=== PATIENT | female | born 1950 | race American Indian/Alaskan Native ===

== ENCOUNTER 2019-03-10 08:05 | Emergency (ER) | payer OTHER, MEDICARE ==
[2019-03-10 08:14] VITALS: BP 139/95
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
--- NOTE | 2019-03-10 10:05 | XRay Report ---
CERVICAL SPINE 6 VIEWS INDICATION: Neck injury. COMPARISON: No relevant prior imaging study available. FINDINGS: VERTEBRAE: No acute fracture. Normal alignment. DISC SPACES: No significant abnormality. FACET JOINTS: No significant abnormality. SOFT TISSUES: There is moderate bilateral common carotid atherosclerosis. ADDITIONAL FINDINGS: No additional significant findings. IMPRESSION: No acute abnormality of the cervical spine. Signer Name: Rommel Crabtree MD Signed: 03/10/2019 10:00 AM Workstation Name: [id number]
[2019-03-10] MEDS ORDERED: TORADOL IM ONE (10:24)
== END 2019-03-10 10:43 | disposition home or self-care (01) ==
LOC: ED 08:05
DX: S16.1XXA Strain of muscle, fascia and tendon at neck level, initial encounter (principal); I10 Essential (primary) hypertension; Z88.0 Allergy status to penicillin; V49.59XA Passenger injured in collision with other motor vehicles in traffic accident, initial encounter; Y93.89 Activity, other specified; Y92.488 Other paved roadways as the place of occurrence of the external cause; Y99.8 Other external cause status
CPT/HCPCS: 72050

== ENCOUNTER 2019-07-04 09:53 | Observation (INO) | payer MEDICARE ==
--- NOTE | 2019-07-04 10:59 | XRay Report ---
PA AND LATERAL CXR HISTORY: Chest pain and cough for one month. COMPARISON: None FINDINGS: Cardiomediastinal silhouette: Normal cardiac size. Normal mediastinal contours. Lungs: Normal expansion. Normal lung aeration. No pleural effusions. No pneumothorax. Prominent ho rizontal fissure is incidentally noted on the right. Pulmonary vascularity: Normal. Support hardware: None. Additional findings: None. IMPRESSION: No evidence of acute cardiopulmonary disease. Signer Name: Deni Somers MD Signed: 07/04/2019 10:54 AM Workstation Name: [id number]
[2019-07-04 11:55] LABS: Basophils % (Auto) 0.6 % (0.0-1.8); Eosinophils # (Auto) 0.1 K/mm3 (0.0-0.4); Eosinophils % (Auto) 1.6 % (0.0-4.3); Hematocrit 36.7 % (30.3-42.9); Hemoglobin 12.7 gm/dl (10.1-14.3); Lymphocytes # (Auto) 2.8 K/mm3 (1.2-5.4); Lymphocytes % (Auto) 39.3 % (13.4-35.0); Mean Corpuscular HGB Conc 35 % (30-34); Mean Corpuscular Volume 92 fl (79-97); Monocytes # (Auto) 0.7 K/mm3 (0.0-0.8); Monocytes % (Auto) 9.9 % (0.0-7.3); Platelet Count 196 K/mm3 (140-440); Red Blood Count 4.01 M/mm3 (3.65-5.03); Red Cell Distribution Width 14.9 % (13.2-15.2)
[2019-07-04 12:05] LABS: INR 1.65 (0.87-1.13); Partial Thromboplastin Time 34.6 Sec. (24.2-36.6)
[2019-07-04 12:22] LABS: Alanine Aminotransferase 37 units/L (7-56); Albumin 3.8 g/dL (3.9-5); BUN/Creatinine Ratio 22; Blood Urea Nitrogen 11 mg/dL (7-17); Calcium 9.3 mg/dL (8.4-10.2); Hemolysis Index 5
--- NOTE | 2019-07-04 12:54 | Vascular Lab Report ---
DUPLEX DOPPLER LOWER EXTREMITY VEINS, LEFT INDICATION: LLE pain, hx of DVT/PE. TECHNIQUE: Duplex doppler imaging was performed through the veins of the left lower extremity using venous compr ession and other maneuvers. COMPARISON: None available. FINDINGS: Common femoral vein: Negative. Superficial femoral vein: Negative. Popliteal vein: Negative. Calf veins: Negative. Additional findings: None. IMPRESSION: Negative for DVT. Signer Name: Evaristo Rausch MD Signed: 07/04/2019 12:49 PM Workstation Name: [id number]
--- NOTE | 2019-07-04 13:13 | Emergency Department Report ---
ED Chest Pain HPI - General Chief Complaint: Chest Pain Stated Complaint: CHEST PAIN/COUGH Time Seen by Provider: 07/04/19 12:03 Source: patient Mode of arrival: Ambulatory Limitations: No Limitations - History of Present Illness Initial Comments: 69-year-old female presents to the emergency department with complaint of a three-day history of some midsternal chest pressure. It is nonradiating. First she thought it was some indigestion so she started taking Tums without any relief. The patient also has been dealing with a lingering cough for the past month and says that recently she has started to develop some brownish sputum. The patient also complains of some intermittent left thigh tenderness. There has been no trauma. No swelling or skin color change. The patient does have a previous history of both DVT and PE and is on Xarelto, which she says she has been taking compliantly. She also has a past medical history of hypertension, hyperlipidemia and is a tobacco smoker. No family history of early cardiac disease or events. Her primary care physician is a Dr. Ban. [place]. She previously had a negative stress test but it has been many years since this occurred. No recent travel or sick contacts at home. Severity scale (0 -10): 5 - Related Data Previous Rx's Medication Instructions Recorded Last Taken Type Cyclobenzaprine HCl [Flexeril 5 MG 5 mg PO TID PRN #21 tab 03/10/19 Unknown Rx TAB] Naproxen [Naprosyn] 500 mg PO BID #14 tablet 03/10/19 Unknown Rx Allergies Allergy/AdvReac Type Severity Reaction Status Date / Time Penicillins Allergy Unknown Verified 07/04/19 10:07 Heart Score - HEART Score History: Slightly suspicious EKG: Normal Age: > 65 Risk factors: > 3 risk factors or hx of atherosclerotic disease Troponin: < normal limit HEART Score: 4 - Critical Actions Critical Actions: 4-6 pts:12-16.6% risk of adverse cardiac event. Should be admitted ED Review of Systems ROS: Stated complaint: CHEST PAIN/COUGH Other details as noted in HPI Comment: All other systems reviewed and negative Constitutional: denies: chills, fever Eyes: denies: eye pain, vision change ENT: denies: ear pain Respiratory: cough. denies: shortness of breath Cardiovascular: chest pain. denies: edema Gastrointestinal: denies: abdominal pain, vomiting Genitourinary: denies: dysuria, discharge Musculoskeletal: myalgia. denies: joint swelling Skin: denies: rash, lesions Neurological: denies: headache, weakness ED Past Medical Hx - Past Medical History Hx Hypertension: Yes Additional medical history: Blood clots - Surgical History Additional Surgical History: BUNION/ CARPEL TUNNEL - Social History Smoking Status: Former Smoker Substance Use Type: Alcohol - Medications Home Medications: Home Medications Medication Instructions Recorded Confirmed Last Taken Type Cyclobenzaprine HCl [Flexeril 5 MG 5 mg PO TID PRN #21 tab 03/10/19 Unknown Rx TAB] Naproxen [Naprosyn] 500 mg PO BID #14 tablet 03/10/19 Unknown Rx ED Physical Exam - General Limitations: No Limitations - Other Other exam information: GENERAL: The patient is well-developed well-nourished. HEENT: Normocephalic. Atraumatic. Patient has moist mucous membranes. EYES: Extraocular motions are intact. NECK: Supple. Trachea is midline. CHEST/LUNGS: Clear to auscultation. There is no respiratory distress noted. HEART/CARDIOVASCULAR: Regular. There is no tachycardia. ABDOMEN: Abdomen is soft, nontender. Patient has normal bowel sounds. There is no abdominal distention. SKIN: Skin is warm and dry. NEURO: The patient is awake, alert, and oriented. The patient is cooperative. The patient has no focal neurologic deficits. The patient has normal speech. MUSCULOSKELETAL: There is some tenderness to palpation to the left mid upper thigh but no obvious deformity. There is no limitation range of motion. ED Course Vital Signs 07/04/19 07/04/19 07/04/19 10:10 12:47 12:57 Temperature 98.6 F Pulse Rate 61 Respiratory 18 18 Rate Blood Pressure 125/70 O2 Sat by Pulse 97 99 100 Oximetry 07/04/19 15:01 Temperature Pulse Rate Respiratory 18 Rate Blood Pressure O2 Sat by Pulse Oximetry AFRICA score - [place] Score Age > 65: (1) Yes Aspirin use within the Past 7 Days: (1) Yes 3 or more CAD Risk Factors: (1) Yes 2 or more Angina events in past 24 hrs: (1) Yes Known CAD with more than 50% Stenosis: (0) No Elevated Cardiac Markers: (0) No ST Deviation Greater than 0.5mm: (0) No AFRICA Score: 4 ED Medical Decision Making - Lab Data Result diagrams: 07/04/19 11:36 07/04/19 11:36 - EKG Data -: EKG Interpreted by Me EKG shows normal: sinus rhythm (PACs), axis, intervals, QRS complexes, ST-T waves Rate: normal - EKG Data When compared to previous EKG there are: previous EKG unavailable Interpretation: normal EKG - Radiology Data Radiology results: report reviewed, image reviewed interpreted by me: Chest x-ray does not show any pneumonia, pleural effusions, focal consolidation, pneumothorax, or any other acute process. DUPLEX DOPPLER LOWER EXTREMITY VEINS, LEFT INDICATION: LLE pain, hx of DVT/PE. TECHNIQUE: Duplex doppler imaging was performed through the veins of the left lower extremity using venous compression and other maneuvers. COMPARISON: None available. FINDINGS: Common femoral vein: Negative. Superficial femoral vein: Negative. Popliteal vein: Negative. Calf veins: Negative. Additional findings: None. IMPRESSION: Negative for DVT. - Medical Decision Making This patient presents to the emergency department with a 3 night history of some midsternal chest pressure. EKG does not show any signs of ST elevation NV. Chest x-ray does not show any acute process. The patient has a history of DVT and PE and complains of some left thigh pain that has been going on for the past few days. Left lower extremity venous Doppler was negative for DVT. Labs have been unremarkable thus far including CBC, metabolic panel, d-dimer and trop onin. The patient continues to have chest discomfort and it has been multiple years since the patient last had a stress test. Therefore the patient will be admitted to the hospital for further evaluation and treatment and was accepted for admission by the hospitalist, Dr. Perera. - Differential Diagnosis NV, DVT, PE, GERD, Pneumonia Critical Care Time: No Critical care attestation.: If time is entered above; I have spent that time in minutes in the direct care of this critically ill patient, excluding procedure time. ED Disposition Clinical Impression: Acute chest pain, Hypokalemia, Chest pain, rule out acute myocardial infarction Disposition: OP ADMIT IP TO THIS HOSP Is pt being admited?: Yes Condition: Fair Time of Disposition: 13:46
[2019-07-04] MEDS ORDERED: oxyCODONE /ACETAMINOPHEN 5-325MG TAB PO ONE (13:52)
--- NOTE | 2019-07-04 19:53 | History and Physical Report ---
History of Present Illness Date of examination: 07/04/19 Date of admission: 07/04/19 13:46 Chief complaint: Chest pain for 3 days off-and-on History of present illness: 69-year-old -[place] female with history of hypertension and reflux comes in for midsternal chest pressure off and on for 3 days. Patient attributes it to indigestion and reflux. Patient has been taking Tums without any relief. Patient also has been having some cough productive of mucoid sputum for the Last couple of weeks. Chest pain is retrosternal dull in character. No diaphoresis and no shortness of breath. No palpitations. Patient is a smoker in the past. 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 No syncope or seizures. No recent travel. Chest discomfort is about 6 on a scale of 1-10. No exacerbating or relieving factors. 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 Past Medical History Hypertension: Yes Blood clots--- PE and DVT in the past Surgical History Additional Surgical History: BUNION/ CARPEL TUNNEL Social History Smoking Status: Former Smoker Substance Use Type: Alcohol Family history Htn Medications Home Medications: Home Medications Medication Instructions Recorded Confirmed Last Taken Type Cyclobenzaprine HCl [Flexeril 5 MG 5 mg PO TID PRN #21 tab 03/10/19 Unknown Rx TAB] Naproxen [Naprosyn] 500 mg PO BID #14 tablet 03/10/19 Unknown Rx Review of Systems ROS: Stated complaint: CHEST PAIN/COUGH Other details as noted in HPI Comment: All other systems reviewed and negative Constitutional: denies: chills, fever Eyes: denies: eye pain, vision change ENT: denies: ear pain Respiratory: cough. denies: shortness of breath Cardiovascular: chest pain. --Retrosternal, no shortness of breath or palpitations Gastrointestinal: denies: abdominal pain, vomiting, has reflux symptoms Genitourinary: denies: dysuria, discharge Musculoskeletal: myalgia. denies: joint swelling Skin: denies: rash, lesions Neurological: denies: headache, weakness 14 point review of systems done--otherwise negative Medications and Allergies Allergies Allergy/AdvReac Type Severity Reaction Status Date / Time Penicillins Allergy Unknown Verified 07/04/19 10:07 Home Medications Medication Instructions Recorded Confirmed Last Taken Type Losartan/Hydrochlorothiazide 1 each PO DAILY 07/04/19 07/04/19 07/04/19 History [Losartan-Hctz 50-12.5 mg Tab] Rivaroxaban [Xarelto] 20 mg PO QDAY 07/04/19 07/04/19 07/04/19 History amLODIPine [Norvasc] 10 mg PO DAILY 07/04/19 07/04/19 07/04/19 History Active Meds: Active Medications Pantoprazole Sodium (Protonix) 40 mg IV BID NICOLE Exam - Constitutional Vitals: Temp Pulse Resp BP Pulse Ox 98.6 F 61 18 125/70 100 07/04/19 10:10 07/04/19 10:10 07/04/19 15:01 07/04/19 10:10 07/04/19 12:57 General appearance: Present: no acute distress, well-nourished - EENT Eyes: Present: PERRL ENT: hearing intact, clear oral mucosa - Neck Neck: Present: supple, normal ROM - Respiratory Respiratory effort: normal Respiratory: bilateral: CTA - Cardiovascular Heart rate: 78 Rhythm: regular Heart Sounds: Present: S1 & S2. Absent: rub, click - Extremities Extremities: no ischemia, pulses intact, pulses symmetrical, No edema Peripheral Pulses: within normal limits - Abdominal General gastrointestinal: Present: soft, non-tender, non-distended, normal bowel sounds Female genitourinary: Present: normal - Integumentary Integumentary: Present: clear, warm, dry - Musculoskeletal Musculoskeletal: gait normal, strength equal bilaterally - Psychiatric Psychiatric: appropriate mood/affect, intact judgment & insight - Neurologic Neurologic: CNII-XII intact, moves all extremities - Allied Health Allied health notes reviewed: nursing, case management Results - Labs CBC & Chem 7: 07/04/19 11:36 07/04/19 11:36 Labs: Laboratory Last Values WBC 7.1 K/mm3 (4.5-11.0) 07/04/19 11:36 RBC 4.01 M/mm3 (3.65-5.03) 07/04/19 11:36 Hgb 12.7 gm/dl (10.1-14.3) 07/04/19 11:36 Hct 36.7 % (30.3-42.9) 07/04/19 11:36 MCV 92 fl (79-97) 07/04/19 11:36 MCH 32 pg (28-32) 07/04/19 11:36 MCHC 35 % (30-34) H 07/04/19 11:36 RDW 14.9 % (13.2-15.2) 07/04/19 11:36 Plt Count 196 K/mm3 (140-440) 07/04/19 11:36 Lymph % (Auto) 39.3 % (13.4-35.0) H 07/04/19 11:36 [place] % (Auto) 9.9 % (0.0-7.3) H 07/04/19 11:36 Eos % (Auto) 1.6 % (0.0-4.3) 07/04/19 11:36 Baso % (Auto) 0.6 % (0.0-1.8) 07/04/19 11:36 Lymph # 2.8 K/mm3 (1.2-5.4) 07/04/19 11:36 [place] # 0.7 K/mm3 (0.0-0.8) 07/04/19 11:36 Eos # 0.1 K/mm3 (0.0-0.4) 07/04/19 11:36 Baso # 0.0 K/mm3 (0.0-0.1) 07/04/19 11:36 Seg Neutrophils % 48.6 % (40.0-70.0) 07/04/19 11:36 Seg Neutrophils # 3.5 K/mm3 (1.8-7.7) 07/04/19 11:36 PT 19.8 Sec. (12.2-14.9) H 07/04/19 11:36 INR 1.65 (0.87-1.13) H 07/04/19 11:36 APTT 34.6 Sec. (24.2-36.6) 07/04/19 11:36 D-Dimer 137.60 ng/mlDDU (0-234) 07/04/19 12:57 Sodium 140 mmol/L (137-145) 07/04/19 11:36 Potassium 3.4 mmol/L (3.6-5.0) L 07/04/19 11:36 Chloride 101.8 mmol/L (98-107) 07/04/19 11:36 Carbon Dioxide 24 mmol/L (22-30) 07/04/19 11:36 Anion Gap 18 mmol/L 07/04/19 11:36 BUN 11 mg/dL (7-17) 07/04/19 11:36 Creatinine 0.5 mg/dL (0.7-1.2) L 07/04/19 11:36 Estimated GFR > 60 ml/min 07/04/19 11:36 BUN/Creatinine Ratio 22 % 07/04/19 11:36 Glucose 89 mg/dL (65-100) 07/04/19 11:36 Calcium 9.3 mg/dL (8.4-10.2) 07/04/19 11:36 Total Bilirubin 0.50 mg/dL (0.1-1.2) 07/04/19 11:36 AST 21 units/L (5-40) 07/04/19 11:36 ALT 37 units/L (7-56) 07/04/19 11:36 Alkaline Phosphatase 87 units/L (35-129) 07/04/19 11:36 Troponin T < 0.010 ng/mL (0.00-0.029) 07/04/19 11:36 NT-Pro-B Natriuret Pep 59.50 pg/mL (0-900) 07/04/19 12:57 Total Protein 6.9 g/dL (6.3-8.2) 07/04/19 11:36 Albumin 3.8 g/dL (3.9-5) L 07/04/19 11:36 Albumin/Globulin Ratio 1.2 % 07/04/19 11:36 Short CBC 07/04/19 Range/Units 11:36 WBC 7.1 (4.5-11.0) K/mm3 Hgb 12.7 (10.1-14.3) gm/dl Hct 36.7 (30.3-42.9) % Plt Count 196 (140-440) K/mm3 BMP 07/04/19 11:36 Sodium 140 Potassium 3.4 L Chloride 101.8 Carbon Dioxide 24 BUN 11 Creatinine 0.5 L Glucose 89 Calcium 9.3 Cardiac Enzymes 07/04/19 Range/Units 11:36 Troponin T < 0.010 (0.00-0.029) ng/mL Liver Function 12/20/19 Range/Units 11:36 Total Bilirubin 0.50 (0.1-1.2) mg/dL AST 21 (5-40) units/L ALT 37 (7-56) units/L Alkaline Phosphatase 87 (35-129) units/L Albumin 3.8 L (3.9-5) g/dL - Imaging and Cardiology EKG: report reviewed (Sinus rhythm, heart rate of 75/min, no acute ST-T wave changes. Atrial premature complexes) Assessment and Plan Advance Directives: Yes (Full code) VTE prophylaxis?: Chemical Plan of care discussed with patient/family: Yes - Patient Problems (1) Acute chest pain Current Visit: Yes Status: Acute Plan to address problem: Chest pain protocol Serial troponins Lexiscan in the morning Patient may have reflux esophagitis Patient complains of reflux symptoms IV Protonix till discharge (2) Reflux esophagitis Current Visit: Yes Status: Acute Plan to address problem: Clinical picture consistent with reflux IV Protonix Follow-up with GI as outpatient EGD as outpatient (3) Hypertension Current Visit: Yes Status: Chronic Qualifiers: Hypertension type: essential hypertension Qualified Code(s): I10 - Essential (primary) hypertension Plan to address problem: Continue losartan and amlodipine Monitor blood pressure and adjust medications accordingly (4) Hypokalemia Current Visit: Yes Status: Acute Plan to address problem: Supplemented (5) History of DVT (deep vein thrombosis) Current Visit: Yes Status: Chronic Plan to address problem: On Xarelto (6) History of pulmonary embolism Current Visit: Yes Status: Inactive Plan to address problem: Patient on Xarelto (7) DVT prophylaxis Current Visit: Yes Status: Acute
[2019-07-04] MEDS ORDERED: METOCLOPRAMIDE 10 MG/2 ML INJ IV PRN (19:54)
[2019-07-04] MEDS ORDERED: HYDROmorphone 1 MG/1 ML INJ IV PRN (19:54)
[2019-07-04] MEDS ORDERED: ONDANSETRON 4 MG/2 ML INJ IV PRN (19:54)
[2019-07-04] MEDS ORDERED: ACETAMINOPHEN 325 MG TAB PO PRN (19:54)
[2019-07-04] MEDS ORDERED: NON-FORMULARY EACH (Losartan/Hydrochlorothiazide [Losartan-Hctz 50-12.5 Mg Tab] 1 EACH) PO SCH (20:00)
[2019-07-04] MEDS ORDERED: POTASSIUM CHLORIDE ER 20 MEQ TAB PO SCH (20:16)
[2019-07-04] MEDS: oxyCODONE /ACETAMINOPHEN 5-325MG TAB PO PRN (20:18)
[2019-07-04] MEDS: PANTOPRAZOLE 40 MG INJ IV SCH ×2 (20:18→21:34)
[2019-07-04] MEDS: amLODIPine 10 MG TAB PO SCH (20:25)
[2019-07-04] MEDS: RIVAROXABAN 20 MG TAB PO SCH (20:25)
[2019-07-05 03:42] LABS: Basophils % (Auto) 0.5 % (0.0-1.8); Eosinophils # (Auto) 0.1 K/mm3 (0.0-0.4); Eosinophils % (Auto) 2.1 % (0.0-4.3); Hematocrit 36.7 % (30.3-42.9); Hemoglobin 12.1 gm/dl (10.1-14.3); Lymphocytes # (Auto) 2.4 K/mm3 (1.2-5.4); Lymphocytes % (Auto) 42.5 % (13.4-35.0); Mean Corpuscular HGB Conc 33 % (30-34); Mean Corpuscular Volume 92 fl (79-97); Monocytes # (Auto) 0.6 K/mm3 (0.0-0.8); Monocytes % (Auto) 9.8 % (0.0-7.3); Platelet Count 172 K/mm3 (140-440); Red Blood Count 4.01 M/mm3 (3.65-5.03); Red Cell Distribution Width 14.6 % (13.2-15.2)
[2019-07-05 04:39] LABS: Alanine Aminotransferase 28 units/L (7-56); Albumin 3.5 g/dL (3.9-5); BUN/Creatinine Ratio 22; Blood Urea Nitrogen 11 mg/dL (7-17); Calcium 8.8 mg/dL (8.4-10.2); Hemolysis Index 17
[2019-07-05] MEDS: oxyCODONE /ACETAMINOPHEN 5-325MG TAB PO PRN (08:14)
[2019-07-05 09:12] VITALS: BP 168/95
--- NOTE | 2019-07-05 10:19 | Progress Note ---
Subjective Date of service: 07/05/19 Interval history: Disregard this progress note as pt was discharged today and discharged summary written instead Objective - Constitutional Vitals: Vital Signs - 12hr 07/04/19 07/05/19 07/05/19 22:39 00:03 00:04 Temperature 98.2 F Pulse Rate 61 Respiratory 18 18 Rate Blood Pressure 101/63 O2 Sat by Pulse 98 Oximetry 07/05/19 07/05/19 07/05/19 00:59 04:46 04:49 Temperature 98.1 F Pulse Rate 68 72 Respiratory 18 Rate Blood Pressure 125/64 O2 Sat by Pulse 97 Oximetry 07/05/19 07/05/19 08:00 08:05 Temperature 98.8 F Pulse Rate 78 64 Respiratory 18 Rate Blood Pressure 168/95 O2 Sat by Pulse 98 Oximetry - Labs CBC & Chem 7: 07/05/19 02:52 07/05/19 02:52 Labs: Abnormal lab results 07/04/19 07/04/19 07/04/19 Range/Units 11:36 11:36 11:36 MCHC 35 H (30-34) % Lymph % (Auto) 39.3 H (13.4-35.0) % [place] % (Auto) 9.9 H (0.0-7.3) % PT 19.8 H (12.2-14.9) Sec. INR 1.65 H (0.87-1.13) Potassium 3.4 L (3.6-5.0) mmol/L Creatinine 0.5 L (0.7-1.2) mg/dL Glucose (65-100) mg/dL Albumin 3.8 L (3.9-5) g/dL 07/05/19 07/05/19 Range/Units 02:52 02:52 MCHC (30-34) % Lymph % (Auto) 42.5 H (13.4-35.0) % [place] % (Auto) 9.8 H (0.0-7.3) % PT (12.2-14.9) Sec. INR (0.87-1.13) Potassium (3.6-5.0) mmol/L Creatinine 0.5 L (0.7-1.2) mg/dL Glucose 105 H (65-100) mg/dL Albumin 3.5 L (3.9-5) g/dL
[2019-07-05] MEDS: PANTOPRAZOLE 40 MG INJ IV SCH (10:21)
[2019-07-05] MEDS: amLODIPine 10 MG TAB PO SCH (10:21)
[2019-07-05] MEDS: RIVAROXABAN 20 MG TAB PO SCH (10:22)
--- NOTE | 2019-07-05 10:48 | Discharge Summary ---
Providers - Providers Date of Admission: 07/04/19 13:46 Date of discharge: 07/05/19 Attending physician: PAYTON DEAN none Primary care physician: DAPHNEY BENTON MD Hospitalization Reason for admission: chest pain Condition: Fair Pertinent studies: EKG Procedures: none Hospital course: 69-year-old -[place] female with history of hypertension and reflux comes in for midsternal chest pressure off and on for 3 days. Patient attributes it to indigestion and reflux. Patient has been taking Tums without any relief. Patient also has been having some cough productive of mucoid sputum for the Last couple of weeks. Chest pain is retrosternal dull in character. No diaphoresis and no shortness of breath. No palpitations. Patient is a smoker in the past. 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 No syncope or seizures. No recent travel. Chest discomfort is about 6 on a scale of 1-10. No exacerbating or relieving factors. Doppler of LE doppler was negative for DVT. Pt decline Stress test saying chest pain is GI related and want only PPI. She is supposed to be on Suboxone. She is therefore being discharged today to f/u with PCP in 3-5 day Disposition: [id number] TO HOME OR SELFCARE Time spent for discharge: 35 mins - Discharge Diagnoses (1) Acute chest pain Status: Acute (2) Hypokalemia Status: Acute (3) Reflux esophagitis Status: Acute (4) Hypertension Status: Chronic Qualifiers: Hypertension type: essential hypertension Qualified Code(s): I10 - Essential (primary) hypertension (5) History of pulmonary embolism Status: Inactive Core Measure Documentation - Palliative Care Palliative Care/ Comfort Measures: Not Applicable - Core Measures Any of the following diagnoses?: none Exam - Constitutional Vitals: Temp Pulse Resp BP Pulse Ox 98.8 F 64 18 168/95 98 07/05/19 08:05 07/05/19 08:05 07/05/19 08:05 07/05/19 08:05 07/05/19 08:05 General appearance: Present: no acute distress, well-nourished - EENT Eyes: Present: PERRL ENT: hearing intact, clear oral mucosa - Neck Neck: Present: supple, normal ROM - Respiratory Respiratory effort: normal Respiratory: bilateral: CTA - Cardiovascular Heart Sounds: Present: S1 & S2. Absent: rub, click - Extremities Extremities: pulses symmetrical, No edema Peripheral Pulses: within normal limits - Abdominal General gastrointestinal: Present: soft, non-tender, non-distended, normal bowel sounds - Integumentary Integumentary: Present: clear, warm, dry - Musculoskeletal Musculoskeletal: gait normal, strength equal bilaterally - Psychiatric Psychiatric: appropriate mood/affect, intact judgment & insight - Neurologic Neurologic: CNII-XII intact, moves all extremities Plan Activity: fall precautions Weight Bearing Status: Non-Weight Bearing Diet: low cholesterol Follow up with: YARELI BENTON,DAPHNEY PECK MD [Primary Care Provider] - 3-5 Days Prescriptions: amLODIPine 10 mg PO DAILY #30 Losartan [Cozaar] 50 mg PO QDAY #30 tablet hydroCHLOROthiazide [HCTZ] 12.5 mg PO QDAY #30 capsule Losartan/Hydrochlorothiazide [Losartan-Hctz 50-12.5 mg Tab] 1 each PO DAILY #30 oxyCODONE /ACETAMINOPHEN [Percocet 5/325 mg] 1 tab PO Q6H PRN #8 tablet PRN Reason: Pain, Moderate (4-6) Mirtazapine [Remeron 15mg TAB] 15 mg PO HS #30 Rivaroxaban [Xarelto] 20 mg PO QDAY #30
[2019-07-05] MEDS ORDERED: hydroCHLOROthiazide 12.5 MG CAP PO SCH (20:00)
[2019-07-05] MEDS ORDERED: LOSARTAN 50 MG TAB PO SCH (20:00)
== END 2019-07-05 13:29 | disposition home or self-care (01) ==
LOC: ED 09:53 → 4A 13:46
PROVIDERS: ADMIT Internal Medicine; ATTEND Family Medicine
DX: R07.89 Other chest pain (principal); K20.9 Esophagitis, unspecified; I10 Essential (primary) hypertension; E87.6 Hypokalemia; Z86.711 Personal history of pulmonary embolism; Z86.718 Personal history of other venous thrombosis and embolism; Z87.891 Personal history of nicotine dependence
CPT/HCPCS: 36415; 71046; 80053; 83036; 83880; 84484; 85025; 85379; 85610; 85730; 93005; 93010; 93971; 96374; 96375; 96376; 99284; C9113; G0378; J1170